=== PATIENT | female | born 1950 | race American Indian/Alaskan Native ===

== ENCOUNTER 2018-11-24 11:57 | Emergency (ER) | payer OTHER ==
[2018-11-24] MEDS ORDERED: D50W (25GM) Syringe IV ONE ×3 (12:48→13:56)
[2018-11-24 12:50] LABS: Basophils % (Auto) 0.8 % (0.0-1.8); Eosinophils % (Auto) 0.7 % (0.0-4.3); Hematocrit 36.8 % (30.3-42.9); Lymphocytes # (Auto) 1.1 K/mm3 (1.2-5.4); Lymphocytes % (Auto) 19.1 % (13.4-35.0); Mean Corpuscular HGB Conc 33 % (30-34); Mean Corpuscular Volume 92 fl (79-97); Monocytes # (Auto) 0.7 K/mm3 (0.0-0.8); Monocytes % (Auto) 11.7 % (0.0-7.3); Platelet Count 222 K/mm3 (140-440); Red Blood Count 4.02 M/mm3 (3.65-5.03)
[2018-11-24 13:05] LABS: Benzodiazepines Screen,Urine PRESUMPTIVE NEGATIVE
[2018-11-24 13:08] LABS: BUN/Creatinine Ratio 20; Blood Urea Nitrogen 14 mg/dL (7-17); Calcium 8.8 mg/dL (8.4-10.2); Hemolysis Index 9
[2018-11-24 13:09] LABS: Bilirubin,Urine NEG (Negative); Blood,Urine MOD (Negative); Color,Urine Yellow (Yellow); Mucus,Urine FEW /HPF; Protein,Urine <15 mg/dL mg/dL (Negative); WBC,Urine < 1.0 /HPF (0.0-6.0)
[2018-11-24 13:21] LABS: Amphetamine Screen,Urine PRESUMPTIVE NEGATIVE; Cannabinoid Screen,Urine PRESUMPTIVE NEGATIVE; Cocaine Screen,Urine PRESUMPTIVE NEGATIVE; Methadone Screen,Urine PRESUMPTIVE NEGATIVE; Opiate Screen,Urine PRESUMPTIVE NEGATIVE
[2018-11-24] MEDS ORDERED: GLUCAGEN IV ONE ×2 (14:17→14:45)
[2018-11-24] MEDS ORDERED: GLUCAGEN ONE (14:45)
--- NOTE | 2018-11-24 15:28 | Emergency Department Report ---
<JOHNY GANN - Last Filed: 11/24/18 20:33> ED General Adult HPI - General Chief complaint: Altered Mental Status Stated complaint: UNRESPONSIVE Time Seen by Provider: 11/24/18 12:41 - Related Data Home Medications Medication Instructions Recorded Confirmed Last Taken Unobtainable 11/24/18 11/24/18 Unknown Allergies Allergy/AdvReac Type Severity Reaction Status Date / Time No Known Allergies Allergy Unverified 11/24/18 12:19 ED Past Medical Hx - Medications Home Medications: Home Medications Medication Instructions Recorded Confirmed Last Taken Type Unobtainable 11/24/18 11/24/18 Unknown History ED Medical Decision Making - Lab Data Result diagrams: 11/24/18 12:34 11/24/18 12:34 - Medical Decision Making Labs reviewed and is unremarkable. CT brain is negative for acute findings. Patient is medically clear for inpatient psychiatric admission. ED Disposition Clinical Impression: Schizophrenia, Psychosis Disposition: DC-01 TO HOME OR SELFCARE Is pt being admited?: No Condition: Stable Instructions: Schizophrenia (ED) Additional Instructions: return if worse [facility] [Primary Care Provider] - 3-5 Days [facility] [Outside] - 3-5 Days <ILIA ANTHONY - Last Filed: 11/25/18 18:12> ED General Adult HPI - General Source: EMS Mode of arrival: Stretcher Limitations: Altered Mental Status - History of Present Illness Initial comments: The patient presents to the ED for change in mental status. The patient refuses answer questions on exam but her sister states that she was just discharged from a psychiatric facility on Saturday. She states since that time she has not taken her meds at home. Improves with: none Worsens with: none Associated Symptoms: other (unknown) Treatments Prior to Arrival: none ED Review of Systems ROS: Stated complaint: UNRESPONSIVE Other details as noted in HPI Comment: unable to obtain due to the patient's refusal to cooperate with exam ED Past Medical Hx - Past Medical History Previous Medical History?: Yes Hx Psychiatric Treatment: Yes (schizophrenia) - Surgical History Past Surgical History?: No - Social History Smoking Status: Unknown if ever smoked ED Physical Exam - General Limitations: Altered Mental Status ED Course Vital Signs 11/24/18 11/24/18 11/24/18 12:15 12:26 12:30 Temperature 98.7 F Pulse Rate 65 69 Respiratory 18 18 19 Rate Blood Pressure 160/86 152/82 O2 Sat by Pulse 98 97 Oximetry 11/24/18 11/24/18 11/24/18 13:00 14:00 15:00 Temperature Pulse Rate 66 64 72 Respiratory 18 15 19 Rate Blood Pressure 141/79 143/71 138/80 O2 Sat by Pulse 98 98 97 Oximetry 11/24/18 11/25/18 16:01 14:04 Temperature 98.7 F Pulse Rate 64 69 Respiratory 19 Rate Blood Pressure 128/84 O2 Sat by Pulse 97 98 Oximetry ED Medical Decision Making - Lab Data Result diagrams: 11/24/18 12:34 11/24/18 12:34 Lab Results 11/24/18 11/24/18 11/24/18 Range/Units 12:34 12:34 12:34 WBC 5.7 (4.5-11.0) K/mm3 RBC 4.02 (3.65-5.03) M/mm3 Hgb 12.0 (10.1-14.3) gm/dl Hct 36.8 (30.3-42.9) % MCV 92 (79-97) fl MCH 30 (28-32) pg MCHC 33 (30-34) % RDW 14.0 (13.2-15.2) % Plt Count 222 (140-440) K/mm3 Lymph % (Auto) 19.1 (13.4-35.0) % [place] % (Auto) 11.7 H (0.0-7.3) % Eos % (Auto) 0.7 (0.0-4.3) % Baso % (Auto) 0.8 (0.0-1.8) % Lymph # 1.1 L (1.2-5.4) K/mm3 [place] # 0.7 (0.0-0.8) K/mm3 Eos # 0.0 (0.0-0.4) K/mm3 Baso # 0.0 (0.0-0.1) K/mm3 Seg Neutrophils % 67.7 (40.0-70.0) % Seg Neutrophils # 3.9 (1.8-7.7) K/mm3 Sodium 142 (137-145) mmol/L Potassium 3.9 (3.6-5.0) mmol/L Chloride 103.6 (98-107) mmol/L Carbon Dioxide 24 (22-30) mmol/L Anion Gap 18 mmol/L BUN 14 (7-17) mg/dL Creatinine 0.7 (0.7-1.2) mg/dL Estimated GFR > 60 ml/min BUN/Creatinine Ratio 20 % Glucose 74 (65-100) mg/dL POC Glucose (70-105) Calcium 8.8 (8.4-10.2) mg/dL Urine Color Yellow (Yellow) Urine Turbidity Clear (Clear) Urine pH 5.0 (5.0-7.0) Ur Specific [place] 1.020 (1.003-1.030) Urine Protein <15 mg/dl (Negative) mg/dL Urine Glucose (UA) Neg (Negative) mg/dL Urine Ketones 80 (Negative) mg/dL Urine Blood Mod (Negative) Urine Nitrite Neg (Negative) Urine Bilirubin Neg (Negative) Urine Urobilinogen 2.0 (<2.0) mg/dL Ur Leukocyte Esterase Neg (Negative) Urine WBC (Auto) < 1.0 (0.0-6.0) /HPF Urine RBC (Auto) 5.0 (0.0-6.0) /HPF Urine Mucus Few /HPF Salicylates (2.8-20.0) mg/dL Urine Opiates Screen Urine Methadone Screen Acetaminophen (10.0-30.0) ug/mL Ur Barbiturates Screen Ur Phencyclidine Scrn Ur Amphetamines Screen U Benzodiazepines Scrn Urine Cocaine Screen U Marijuana (THC) Screen Drugs of Abuse Note Plasma/Serum Alcohol (0-0.07) % 11/24/18 11/24/18 11/24/18 Range/Units 12:34 13:53 14:31 WBC (4.5-11.0) K/mm3 RBC (3.65-5.03) M/mm3 Hgb (10.1-14.3) gm/dl Hct (30.3-42.9) % MCV (79-97) fl MCH (28-32) pg MCHC (30-34) % RDW (13.2-15.2) % Plt Count (140-440) K/mm3 Lymph % (Auto) (13.4-35.0) % [place] % (Auto) (0.0-7.3) % Eos % (Auto) (0.0-4.3) % Baso % (Auto) (0.0-1.8) % Lymph # (1.2-5.4) K/mm3 [place] # (0.0-0.8) K/mm3 Eos # (0.0-0.4) K/mm3 Baso # (0.0-0.1) K/mm3 Seg Neutrophils % (40.0-70.0) % Seg Neutrophils # (1.8-7.7) K/mm3 Sodium (137-145) mmol/L Potassium (3.6-5.0) mmol/L Chloride (98-107) mmol/L Carbon Dioxide (22-30) mmol/L Anion Gap mmol/L BUN (7-17) mg/dL Creatinine (0.7-1.2) mg/dL Estimated GFR ml/min BUN/Creatinine Ratio % Glucose (65-100) mg/dL POC Glucose 67 L (70-105) Calcium (8.4-10.2) mg/dL Urine Color (Yellow) Urine Turbidity (Clear) Urine pH (5.0-7.0) Ur Specific [place] (1.003-1.030) Urine Protein (Negative) mg/dL Urine Glucose (UA) (Negative) mg/dL Urine Ketones (Negative) mg/dL Urine Blood (Negative) Urine Nitrite (Negative) Urine Bilirubin (Negative) Urine Urobilinogen (<2.0) mg/dL Ur Leukocyte Esterase (Negative) Urine WBC (Auto) (0.0-6.0) /HPF Urine RBC (Auto) (0.0-6.0) /HPF Urine Mucus /HPF Salicylates < 0.3 L (2.8-20.0) mg/dL Urine Opiates Screen Presumptive negative Urine Methadone Screen Presumptive negative Acetaminophen (10.0-30.0) ug/mL Ur Barbiturates Screen Presumptive negative Ur Phencyclidine Scrn Presumptive negative Ur Amphetamines Screen Presumptive negative U Benzodiazepines Scrn Presumptive negative Urine Cocaine Screen Presumptive negative U Marijuana (THC) Screen Presumptive negative Drugs of Abuse Note Disclamer Plasma/Serum Alcohol (0-0.07) % 11/24/18 11/24/18 11/24/18 Range/Units 14:31 14:31 15:37 WBC (4.5-11.0) K/mm3 RBC (3.65-5.03) M/mm3 Hgb (10.1-14.3) gm/dl Hct (30.3-42.9) % MCV (79-97) fl MCH (28-32) pg MCHC (30-34) % RDW (13.2-15.2) % Plt Count (140-440) K/mm3 Lymph % (Auto) (13.4-35.0) % [place] % (Auto) (0.0-7.3) % Eos % (Auto) (0.0-4.3) % Baso % (Auto) (0.0-1.8) % Lymph # (1.2-5.4) K/mm3 [place] # (0.0-0.8) K/mm3 Eos # (0.0-0.4) K/mm3 Baso # (0.0-0.1) K/mm3 Seg Neutrophils % (40.0-70.0) % Seg Neutrophils # (1.8-7.7) K/mm3 Sodium (137-145) mmol/L Potassium (3.6-5.0) mmol/L Chloride (98-107) mmol/L Carbon Dioxide (22-30) mmol/L Anion Gap mmol/L BUN (7-17) mg/dL Creatinine (0.7-1.2) mg/dL Estimated GFR ml/min BUN/Creatinine Ratio % Glucose (65-100) mg/dL POC Glucose 169 H (70-105) Calcium (8.4-10.2) mg/dL Urine Color (Yellow) Urine Turbidity (Clear) Urine pH (5.0-7.0) Ur Specific [place] (1.003-1.030) Urine Protein (Negative) mg/dL Urine Glucose (UA) (Negative) mg/dL Urine Ketones (Negative) mg/dL Urine Blood (Negative) Urine Nitrite (Negative) Urine Bilirubin (Negative) Urine Urobilinogen (<2.0) mg/dL Ur Leukocyte Esterase (Negative) Urine WBC (Auto) (0.0-6.0) /HPF Urine RBC (Auto) (0.0-6.0) /HPF Urine Mucus /HPF Salicylates (2.8-20.0) mg/dL Urine Opiates Screen Urine Methadone Screen Acetaminophen < 5.0 L (10.0-30.0) ug/mL Ur Barbiturates Screen Ur Phencyclidine Scrn Ur Amphetamines Screen U Benzodiazepines Scrn Urine Cocaine Screen U Marijuana (THC) Screen Drugs of Abuse Note Plasma/Serum Alcohol < 0.01 (0-0.07) % 11/24/18 Range/Units 16:51 WBC (4.5-11.0) K/mm3 RBC (3.65-5.03) M/mm3 Hgb (10.1-14.3) gm/dl Hct (30.3-42.9) % MCV (79-97) fl MCH (28-32) pg MCHC (30-34) % RDW (13.2-15.2) % Plt Count (140-440) K/mm3 Lymph % (Auto) (13.4-35.0) % [place] % (Auto) (0.0-7.3) % Eos % (Auto) (0.0-4.3) % Baso % (Auto) (0.0-1.8) % Lymph # (1.2-5.4) K/mm3 [place] # (0.0-0.8) K/mm3 Eos # (0.0-0.4) K/mm3 Baso # (0.0-0.1) K/mm3 Seg Neutrophils % (40.0-70.0) % Seg Neutrophils # (1.8-7.7) K/mm3 Sodium (137-145) mmol/L Potassium (3.6-5.0) mmol/L Chloride (98-107) mmol/L Carbon Dioxide (22-30) mmol/L Anion Gap mmol/L BUN (7-17) mg/dL Creatinine (0.7-1.2) mg/dL Estimated GFR ml/min BUN/Creatinine Ratio % Glucose (65-100) mg/dL POC Glucose 103 (70-105) Calcium (8.4-10.2) mg/dL Urine Color (Yellow) Urine Turbidity (Clear) Urine pH (5.0-7.0) Ur Specific [place] (1.003-1.030) Urine Protein (Negative) mg/dL Urine Glucose (UA) (Negative) mg/dL Urine Ketones (Negative) mg/dL Urine Blood (Negative) Urine Nitrite (Negative) Urine Bilirubin (Negative) Urine Urobilinogen (<2.0) mg/dL Ur Leukocyte Esterase (Negative) Urine WBC (Auto) (0.0-6.0) /HPF Urine RBC (Auto) (0.0-6.0) /HPF Urine Mucus /HPF Salicylates (2.8-20.0) mg/dL Urine Opiates Screen Urine Methadone Screen Acetaminophen (10.0-30.0) ug/mL Ur Barbiturates Screen Ur Phencyclidine Scrn Ur Amphetamines Screen U Benzodiazepines Scrn Urine Cocaine Screen U Marijuana (THC) Screen Drugs of Abuse Note Plasma/Serum Alcohol (0-0.07) % - Radiology Data CT of the head is pending Will be medically clear once CT returns Critical care attestation.: If time is entered above; I have spent that time in minutes in the direct care of this critically ill patient, excluding procedure time. ED Disposition Is pt being admited?: No Does the pt Need Aspirin: No Time of Disposition: 18:12
[2018-11-24 16:29] VITALS: BP 128/84
--- NOTE | 2018-11-24 17:03 | Cat Scan Report ---
PROCEDURE: CT head without contrast. TECHNIQUE: Routine computed tomography of the head was performed without contrast material. HISTORY: Altered mental status. COMPARISONS: None. FINDINGS: The ventricles are normal in size. The ernst matter and white matter appear normal. There are no mass lesions. There is no intracranial hemorrhage. The calvarium appears intact. The mastoid air cells and paranasal sinuses are clear as far as visualized. IMPRESSION: Normal study. This document is electronically signed by Dipesh Milan MD., November 24 2018 05:02:11 PM ET
--- NOTE | 2018-11-25 17:12 | Consultation ---
History of Present Illness - Reason for Consult Consult date: 11/25/18 Reason for consult: Mental Health Evaluation Requesting physician: ILIA ANTHONY - Chief Complaint Chief complaint: "I'm okay now" - History of Present Psychiatric Illness 68 y.o. female who presented to the ER for unresponsiveness. Today the patient is calm and cooperative during the assessment. She stated that she was unresponsive earlier yesterday, but cannot state why. She stated that she was unresponsive for 1 day. She stated that she was recently discharged from [facility] last week. She stated that she feels "fine now." She stated that she is compliant with her medication (Latuda) and is seen at [facility] for outpatient psy services. Per collateral information from the patient's sister Lang Latham, who was at the bedside, she confirmed the patient's behavior prior to coming to the ER. She stated that the patient was eating and sleeping like "normal" until yesterday afternoon. She stated that the patient is back to her baseline. Per the staff, the patient ate all her meals today. The patient denies SI/HI's and AVH's. She denies erratic sleep and a poor appetite. She denies recreational drug use and alcohol consumption (etoph). The patient stated that she take Latuda currently, but prefer Risperdal. Medications and Allergies Allergies Allergy/AdvReac Type Severity Reaction Status Date / Time No Known Allergies Allergy Unverified 11/24/18 12:19 Home Medications Medication Instructions Recorded Confirmed Last Taken Type Unobtainable 11/24/18 11/24/18 Unknown History Mental Status Exam - Vital signs Last Vital Signs Temp 98.7 F 11/25/18 14:04 Pulse 69 11/25/18 14:04 Resp 19 11/24/18 16:01 BP 128/84 11/24/18 16:01 Pulse Ox 98 11/25/18 14:04 - Exam Narrative exam: MSE: Appearance: calm, cooperative Behavior: regular eye contact Speech: regular rate and tone Mood: "okay" Affect: congruent to mood Thought Process: circumstantial Thought Content: denies SI/HI's and AVH's Motor Activity: ambulatory Cognition: A/O x3 Insight: fair Judgment: fair Results Result Diagrams: 11/24/18 12:34 11/24/18 12:34 Abnormal lab results 11/24/18 Range/Units 12:00 POC Glucose 69 L (70-105) All other labs normal. Assessment and Plan Assessment and plan: Impression: Hx of Psychosis per the patient's sister. No overt psychosis with the patient. Today the patient calm and cooperative during the assessment. The patient is at her baseline. . Recommendation/Plan: The patient was advised to follow up with her psychiatrist at [facility] for medication management. The patient stated that she takes Latuda currently, but prefer Risperdal. Dispo: The patient can follow up with [facility] for outpatient psy servi henrietta. Will staff with Dr Oskar Daugherty.
== END 2018-11-25 18:38 | disposition home or self-care (01) ==
LOC: ED 11:57 → EDBD 11:57 → ED 11-25 18:38
DX: F20.9 Schizophrenia, unspecified (principal)
CPT/HCPCS: 36415; 70450; 80048; 80307; 81001; 82962; 85025; 93005; 93010; 96374; 96375; 96376; 99285; G0480; J1610; 80320